=== PATIENT | male | born 1980 | race Caucasian/White ===

== ENCOUNTER 2018-12-04 01:18 | Emergency (ER) | payer MEDICAID ==
--- NOTE | 2018-12-04 01:56 | ED Physician Chart ---
ED Chief Complaint/HPI - Patient Information Date Seen:: 12/04/18 Time Seen:: 01:35 Chief Complaint:: laceration left hand History of Present Illness:: 6 days ago patient was trying to remove glue from a rearview mirror using a straight edge razor blade which slipped cutting his left hand. Patient is right -hand dominant. Last tetanus booster 2-3 years ago. Vitals:: Vital Signs - 8 hr 12/04/18 01:20 Temp 98.6 F HR 85 RR 17 BP 150/88 O2 Sat % 100 Historian:: Patient Review:: Nurse's Note Reviewed ED Review of Systems - Review of Systems General/Constitutional: No fever, No chills Skin: Skin lesions Head: No headache Eyes: No loss of vision ENT: No earache Neck: No neck pain Cardio Vascular: No chest pain Pulmonary: No SOB GI: No nausea, No vomiting, No diarrhea G/U: No dysuria Musculoskeletal: No bone or joint pain Endocrine: No polyuria Psychiatric: No prior psych history Hematopoietic: No bruising Allergic/Immuno: No urticaria Neurological: No syncope, No focal symptoms ED Past Medical History - Past Medical History Past Medical History: No significant medical hx Family History: Heart disease, Diabetes Melitus, HTN, Cancer Social History: Non Smoker, Other Employment:: Sometimes drinks alcohol Surgical History: None Psychiatricy History: None Medication: None Family Medical History - Family Member Mother History Unknown: Yes ED Physical Exam - Physical Examination General/Constitutional: Awake Head: Atraumatic Eyes: Lids, conjuctiva normal Other Skin comments:: 4 cm curved laceration centered about 1-1/2 cm proximal to dorsal base of the left index finger; edges of laceration dehisced about 2 mm with about 1 cm of erythema surrounding the laceration; sensation and extension left index finger intact ENMT: External ears, nose nl Neck: No nuchal rigidity Respiratory: Nl effort/Exclusion Cardio Vascular: RRR GI: No tenderness/rebounding/guarding : No CVA tenderness Extremities: No tenderness or effusion Neuro/Psych: Alert/oriented ED Assessment - Assessment General Assessment: bandage with 2 x 2's and three-inch Yeni applied ED Septic Shock - . Is Septic Shock (SBP<90, OR Lactate>4 mmol\L) present?: No - <6hrs of presentation: Vital Signs: Vital Signs - 8 hr 12/04/18 01:20 Temp 98.6 F HR 85 RR 17 BP 150/88 O2 Sat % 100 ED Reassessment (Disposition) - Reassessment Reassessment Condition:: Unchanged - Diagnosis Diagnosis:: Infected laceration dorsum left hand - Aftercare/Follow up Instructions Medication Prescribed:: Keflex 500 mg 4 times a day for 10 days. - Patient Disposition Discharge/Transfer:: Home Condition at Disposition:: Stable, Unchanged
== END 2018-12-04 02:12 | disposition home or self-care (01) ==
LOC: ER 01:18
DX: S61.412A Laceration without foreign body of left hand, initial encounter (principal); L08.9 Local infection of the skin and subcutaneous tissue, unspecified; W26.8XXA Contact with other sharp object(s), not elsewhere classified, initial encounter; Y93.89 Activity, other specified; Y92.89 Other specified places as the place of occurrence of the external cause; Y99.8 Other external cause status
CPT/HCPCS: Z7502; Z7610